=== PATIENT | female | born 1990 | race Two or more races ===

== ENCOUNTER 2018-05-18 21:41 | Outpatient (CLI) | payer MEDICAID ==
[~2018-05-18] VITALS: Ht 167.6 cm; Wt 91.0 kg
[~2018-05-18 21:41] MED LIST: IBUP-1222 PO
== END 2018-05-18 23:58 | disposition home or self-care (01) ==
LOC: LDOP 21:41
PROVIDERS: ATTEND Obstetrics & Gynecology
DX: O26.893 Other specified pregnancy related conditions, third trimester (principal); R10.9 Unspecified abdominal pain; Z3A.37 37 weeks gestation of pregnancy
CPT/HCPCS: 59025; 99201; 99211; G0463

== ENCOUNTER 2018-05-27 03:52 | Inpatient (IN) | payer MEDICAID ==
[~2018-05-27] VITALS: Ht 167.6 cm; Wt 86.0 kg
[2018-05-27] MEDS ORDERED: D5%-LACTATED RINGERS 1,000 ML IV SCH (04:06)
[2018-05-27] MEDS ORDERED: LACTATED RINGERS 1,000 ML IV SCH (04:06)
[2018-05-27] MEDS ORDERED: OXYTOCIN 30U/ 0.9% NaCL 500ML 500 ML IV ONE (04:06)
[2018-05-27 04:14] VITALS: BP 122/69
[2018-05-27] MEDS ORDERED: ALUMINUM/MAG/SIMETHICONE 30 ML UDC PO PRN (04:30)
[2018-05-27] MEDS ORDERED: FENTANYL PF 100 MCG/2ML IVPush PRN (04:30)
[2018-05-27] MEDS ORDERED: SODIUM CITRATE/CITRIC ACID 30 ML UDC PO PRN (04:30)
[2018-05-27] MEDS ORDERED: CALCIUM CARBONATE 500 MG TAB.CHEW PO PRN (04:30)
[2018-05-27] MEDS ORDERED: SODIUM CHLORIDE FLUSH 10ML SYR IVF PRN (04:30)
[2018-05-27] MEDS ORDERED: METOCLOPRAMIDE 5 MG/ML, 2ML IVPush PRN (04:30)
[2018-05-27] MEDS ORDERED: FENTANYL PF 100 MCG/2ML IV PRN (04:30)
[2018-05-27 04:32] LABS: BASOPHILS % (AUTO) 1 % (0-1); EOSINOPHILS # (AUTO) 0.12 x10^3/uL (0-0.4); EOSINOPHILS % (AUTO) 1 % (1-7); LYMPHOCYTES # (AUTO) 2.91 x10^3/uL (1-3.4); LYMPHOCYTES % (AUTO) 26 % (22-44); MD NO; MEAN CORPUSCULAR HEMOGLOBIN 27.2 pg (27.0-34.8); MEAN CORPUSCULAR VOLUME 82.5 fL (80-100); MEAN PLATELET VOLUME 7.2 fL (7.4-10.4); MONOCYTES # (AUTO) 0.67 x10^3/uL (0.2-0.8); MONOCYTES % (AUTO) 6 % (2-9); NEUTROPHILS # (AUTO) 7.43 x10^3/uL (1.8-6.8); NEUTROPHILS % (AUTO) 66 % (42-75); PLATELET COUNT 283 x10^3/uL (130-400); RED BLOOD COUNT 3.72 x10^6/uL (3.82-5.3); RED CELL DISTRIBUTION WIDTH 15.2 % (9.6-15.2)
[2018-05-27] MEDS: OXYTOCIN 30U/ 0.9% NaCL 500ML 500 ML IV SCH ×2 (05:06→06:23)
[2018-05-27] MEDS ORDERED: IBUPROFEN 600 MG TABLET ONE (05:23)
[2018-05-27] MEDS: IBUPROFEN 600 MG TABLET PO PRN ×3 (05:27→17:48)
[2018-05-27] MEDS ORDERED: MISOPROSTOL 200 MCG TABLET PR PRN (05:30)
[2018-05-27] MEDS ORDERED: ONDANSETRON 2MG/ML, 2ML IV PRN (05:30)
[2018-05-27] MEDS ORDERED: HYDROcodone/APAP 5/325 TABLET PO PRN (05:30)
[2018-05-27] MEDS ORDERED: RHOGAM FROM BLOOD BANK 1 NOTE EA IM/IV ONE (05:30)
[2018-05-27] MEDS ORDERED: METHYLERGONOVINE 0.2 MG/ML IM PRN (05:30)
[2018-05-27] MEDS ORDERED: ACETAMINOPHEN 325 MG TABLET PO PRN (05:30)
[2018-05-27] MEDS ORDERED: OXYTOCIN 30U/ 0.9% NaCL 500ML 500 ML ONE (06:17)
[2018-05-27] MEDS ORDERED: HYDROcodone/APAP 5/325 TABLET ONE (06:54)
[2018-05-27] MEDS: HYDROcodone/APAP 5/325 TABLET PO PRN ×3 (06:56→11:34)
[2018-05-27 08:00] VITALS: BP 113/75
[2018-05-27] MEDS: PRENATAL VIT/IRON/FA 1 EACH TABLET PO SCH (11:29)
[2018-05-27] MEDS: DOCUSATE 100 MG CAPSULE PO PRN (11:29)
[2018-05-27 12:00] VITALS: BP 109/73
[2018-05-27 13:01] LABS: BASOPHILS # (AUTO) 0.04 x10^3/uL (0-0.1); BASOPHILS % (AUTO) 0 % (0-1); EOSINOPHILS # (AUTO) 0.05 x10^3/uL (0-0.4); EOSINOPHILS % (AUTO) 0 % (1-7); LYMPHOCYTES # (AUTO) 1.74 x10^3/uL (1-3.4); LYMPHOCYTES % (AUTO) 13 % (22-44); MD NO; MEAN CORPUSCULAR HEMOGLOBIN 26.5 pg (27.0-34.8); MEAN CORPUSCULAR HGB CONC 32.7 g/dL (32.4-35.8); MEAN CORPUSCULAR VOLUME 80.9 fL (80-100); MEAN PLATELET VOLUME 6.6 fL (7.4-10.4); MONOCYTES # (AUTO) 0.58 x10^3/uL (0.2-0.8); MONOCYTES % (AUTO) 4 % (2-9); NEUTROPHILS # (AUTO) 11.18 x10^3/uL (1.8-6.8); NEUTROPHILS % (AUTO) 82 % (42-75); PLATELET COUNT 272 x10^3/uL (130-400); RED BLOOD COUNT 3.49 x10^6/uL (3.82-5.3); RED CELL DISTRIBUTION WIDTH 14.8 % (9.6-15.2)
[2018-05-27 16:00] VITALS: BP 108/68
[2018-05-27 20:20] VITALS: BP 106/74
[2018-05-28 00:15] VITALS: BP 106/74
[2018-05-28] MEDS: IBUPROFEN 600 MG TABLET PO PRN ×2 (00:37→13:04)
[2018-05-28] MEDS: OXYTOCIN 30U/ 0.9% NaCL 500ML 500 ML IV SCH (01:18)
[2018-05-28 01:22] VITALS: BP 79/51
[2018-05-28 04:50] VITALS: BP 94/63
[2018-05-28 07:15] VITALS: BP 95/63
[2018-05-28] MEDS: DOCUSATE 100 MG CAPSULE PO PRN (08:13)
[2018-05-28] MEDS: PRENATAL VIT/IRON/FA 1 EACH TABLET PO SCH (09:00)
== END 2018-05-28 15:06 | disposition home or self-care (01) | DRG 807 ==
LOC: LDOP 03:52 → LDIP 03:58 → 2NW 07:26
PROVIDERS: ADMIT Obstetrics & Gynecology; ATTEND Obstetrics & Gynecology
PROC: 10E0XZZ Delivery of Products of Conception, External Approach (ICD-10-PCS; principal; 2018-05-27)
PROC: 10907ZC Drainage of Amniotic Fluid, Therapeutic from Products of Conception, Via Natural or Artificial Opening (ICD-10-PCS; 2018-05-27)
DX: O69.1XX0 Labor and delivery complicated by cord around neck, with compression, not applicable or unspecified (principal); Z37.0 Single live birth; Z3A.39 39 weeks gestation of pregnancy
CPT/HCPCS: 36415; 85025; 86850; 86900; G0378; J2590; J7120